=== PATIENT | male | born 1980 | race Caucasian/White ===

== ENCOUNTER 2019-06-02 16:59 | Emergency (ER) | payer BC, OTHER ==
[2019-06-02] MEDS ORDERED: SODIUM CHLORIDE 0.9% 1,000 ML IV STA (17:54)
[2019-06-02] MEDS ORDERED: LORazepam 2 MG/ML INJ IV STA (17:55)
--- NOTE | 2019-06-02 17:58 | ED ---
Dizziness HPI - General Chief Complaint: Dizziness Stated Complaint: CHEST TIGHTNESS,DIZZY Time Seen by Provider: 06/02/19 17:17 Source: patient, RN notes reviewed, old records reviewed Mode of arrival: ambulatory Limitations: no limitations - History of Present Illness Initial Comments: This is a 38-year-old male presents dizziness concern possible for having complaints of dizziness, he is concerned and anxious possible exposure having a virus. Lightheadedness and some facial chest pain denying any current shortness of breath or fevers. Patient has no recent travel history or known sick contacts no known exposures to [place]. Patient denying any other significant symptoms symptoms are episodic and currently is asymptomatic MD Complaint: dizziness -: days(s) Timing: gradual onset Description: lightheadedness, nausea History of Same: No History of Trauma: No Severity: mild Improves With: remaining still, rehydration Worsens With: movement Associated Symptoms: chest pain - Related Data Previous Rx's Medication Instructions Recorded Penicillin V Potassium [Pen Vee K] 500 mg PO QID #28 tab 04/08/15 Allergies Allergy/AdvReac Type Severity Reaction Status Date / Time No Known Allergies Allergy Verified 06/02/19 17:05 Review of Systems ROS Statement: Those systems with pertinent positive or pertinent negative responses have been documented in the HPI. ROS Other: All systems not noted in ROS Statement are negative. Past Medical History Past Medical History: No Reported History History of Any Multi-Drug Resistant Organisms: None Reported Past Surgical History: No Surgical Hx Reported Past Psychological History: No Psychological Hx Reported Smoking Status: Never smoker Past Alcohol Use History: None Reported Past Drug Use History: None Reported General Exam Limitations: no limitations General appearance: alert, in no apparent distress, anxious Head exam: Present: atraumatic, normocephalic, normal inspection Eye exam: Present: normal appearance, PERRL, EOMI. Absent: scleral icterus, conjunctival injection, periorbital swelling ENT exam: Present: normal exam, mucous membranes moist Neck exam: Present: normal inspection. Absent: tenderness, meningismus, lymphadenopathy Respiratory exam: Present: normal lung sounds bilaterally. Absent: respiratory distress, wheezes, rales, rhonchi, stridor Cardiovascular Exam: Present: regular rate, normal rhythm, normal heart sounds. Absent: systolic murmur, diastolic murmur, rubs, gallop, clicks GI/Abdominal exam: Present: soft, normal bowel sounds. Absent: distended, tenderness, guarding, rebound, rigid Extremities exam: Present: normal inspection, full ROM, normal capillary refill. Absent: tenderness, pedal edema, joint swelling, calf tenderness Back exam: Present: normal inspection Neurological exam: Present: alert, oriented X3, CN II-XII intact Psychiatric exam: Present: normal affect, normal mood Skin exam: Present: warm, dry, intact, normal color. Absent: rash Course Vital Signs 06/02/19 06/02/19 06/02/19 17:01 17:41 17:45 Temperature 98.2 F Pulse Rate 124 H 112 H 98 Respiratory 18 14 10 L Rate Blood Pressure 166/86 O2 Sat by Pulse 99 Oximetry 06/02/19 06/02/19 06/02/19 17:50 17:55 18:05 Temperature Pulse Rate 93 91 85 Respiratory 8 L 16 16 Rate Blood Pressure 141/96 124/81 O2 Sat by Pulse 97 95 95 Oximetry 06/02/19 06/02/19 06/02/19 18:10 18:15 18:18 Temperature Pulse Rate 87 Respiratory 16 Rate Blood Pressure 124/81 124/81 O2 Sat by Pulse 97 98 Oximetry 06/02/19 06/02/19 06/02/19 18:20 18:25 18:30 Temperature Pulse Rate 95 89 Respiratory 9 L 17 Rate Blood Pressure 124/81 124/81 124/81 O2 Sat by Pulse Oximetry 06/02/19 06/02/19 19:48 20:30 Temperature 98.3 F 97.3 F L Pulse Rate 79 87 Respiratory 18 15 Rate Blood Pressure 133/88 127/79 O2 Sat by Pulse 98 97 Oximetry - Reevaluation(s) Reevaluation #1: Medical record is reviewed Patient denying any chest pain or significant shortness of breath pulse ox normal here in the ER Patient informed her normal findings, objective plan of care, questions are answered EKG Findings - EKG Comments: EKG Findings:: EKG shows sinus of 99, OR 144, QRS 84, QTc 420 Medical Decision Making - Medical Decision Making 38-year-old male DF for evaluation patient has a for evaluation of dizziness, patient informed of possibility of early viral illness versus possible COVID, patient will return to ER if symptoms worsen - Lab Data Result diagrams: 06/02/19 17:49 06/02/19 17:49 Lab Results 06/02/19 06/02/19 06/02/19 Range/Units 17:49 17:49 17:49 WBC 14.2 H (3.8-10.6) k/uL RBC 5.30 (4.30-5.90) m/uL Hgb 16.9 (13.0-17.5) gm/dL Hct 49.7 (39.0-53.0) % MCV 93.8 (80.0-100.0) fL MCH 31.9 (25.0-35.0) pg MCHC 34.1 (31.0-37.0) g/dL RDW 12.5 (11.5-15.5) % Plt Count 267 (150-450) k/uL Neutrophils % 82 % Lymphocytes % 12 % Monocytes % 4 % Eosinophils % 1 % Basophils % 1 % Neutrophils # 11.7 H (1.3-7.7) k/uL Lymphocytes # 1.7 (1.0-4.8) k/uL Monocytes # 0.5 (0-1.0) k/uL Eosinophils # 0.1 (0-0.7) k/uL Basophils # 0.1 (0-0.2) k/uL D-Dimer <0.17 (<0.60) mg/L FEU Sodium 139 (137-145) mmol/L Potassium 4.2 (3.5-5.1) mmol/L Chloride 104 (98-107) mmol/L Carbon Dioxide 25 (22-30) mmol/L Anion Gap 10 mmol/L BUN 11 (9-20) mg/dL Creatinine 0.87 (0.66-1.25) mg/dL Est GFR (CKD-EPI)AfAm >90 (>60 ml/min/1.73 sqM) Est GFR (CKD-EPI)NonAf >90 (>60 ml/min/1.73 sqM) Glucose 103 H (74-99) mg/dL Calcium 10.1 (8.4-10.2) mg/dL Phosphorus 3.2 (2.5-4.5) mg/dL Magnesium 1.9 (1.6-2.3) mg/dL Ferritin 170.6 (22.0-322.0) ng/mL Total Bilirubin 0.5 (0.2-1.3) mg/dL AST 26 (17-59) U/L ALT 26 (4-49) U/L Alkaline Phosphatase 86 (38-126) U/L Creatine Kinase 102 (55-170) U/L CK-MB (CK-2) (0.0-2.4) ng/mL Troponin I (0.000-0.034) ng/mL NT-Pro-B Natriuret Pep pg/mL Total Protein 8.2 (6.3-8.2) g/dL Albumin 5.0 (3.5-5.0) g/dL 06/02/19 06/02/19 Range/Units 17:49 17:49 WBC (3.8-10.6) k/uL RBC (4.30-5.90) m/uL Hgb (13.0-17.5) gm/dL Hct (39.0-53.0) % MCV (80.0-100.0) fL MCH (25.0-35.0) pg MCHC (31.0-37.0) g/dL RDW (11.5-15.5) % Plt Count (150-450) k/uL Neutrophils % % Lymphocytes % % Monocytes % % Eosinophils % % Basophils % % Neutrophils # (1.3-7.7) k/uL Lymphocytes # (1.0-4.8) k/uL Monocytes # (0-1.0) k/uL Eosinophils # (0-0.7) k/uL Basophils # (0-0.2) k/uL D-Dimer (<0.60) mg/L FEU Sodium (137-145) mmol/L Potassium (3.5-5.1) mmol/L Chloride (98-107) mmol/L Carbon Dioxide (22-30) mmol/L Anion Gap mmol/L BUN (9-20) mg/dL Creatinine (0.66-1.25) mg/dL Est GFR (CKD-EPI)AfAm (>60 ml/min/1.73 sqM) Est GFR (CKD-EPI)NonAf (>60 ml/min/1.73 sqM) Glucose (74-99) mg/dL Calcium (8.4-10.2) mg/dL Phosphorus (2.5-4.5) mg/dL Magnesium (1.6-2.3) mg/dL Ferritin (22.0-322.0) ng/mL Total Bilirubin (0.2-1.3) mg/dL AST (17-59) U/L ALT (4-49) U/L Alkaline Phosphatase (38-126) U/L Creatine Kinase (55-170) U/L CK-MB (CK-2) 1.2 (0.0-2.4) ng/mL Troponin I <0.012 (0.000-0.034) ng/mL NT-Pro-B Natriuret Pep 18 pg/mL Total Protein (6.3-8.2) g/dL Albumin (3.5-5.0) g/dL - Radiology Data Radiology results: report reviewed (Chest x-ray is negative for acute disease), image reviewed Disposition Clinical Impression: Dizziness Disposition: HOME SELF-CARE Condition: Good Instructions (If sedation given, give patient instructions): Dizziness (ED) Is patient prescribed a controlled substance at d/c from ED?: No Referrals: None,Stated [Primary Care Provider] - 1-2 days
[2019-06-02 18:12] LABS: Basophils # (A) 0.1 k/uL (0-0.2); Basophils % (A) 1 %; Eosinophils # (A) 0.1 k/uL (0-0.7); Eosinophils % (A) 1 %; HCT 49.7 % (39.0-53.0); HGB 16.9 gm/dL (13.0-17.5); Lymphocytes # (A) 1.7 k/uL (1.0-4.8); Lymphocytes % (A) 12 %; MCH 31.9 pg (25.0-35.0); MCHC 34.1 g/dL (31.0-37.0); MCV 93.8 fL (80.0-100.0); Mean Platelet Volume 8.2; Monocytes # (A) 0.5 k/uL (0-1.0); Monocytes % (A) 4 %; Neutrophils # (A) 11.7 k/uL (1.3-7.7); Neutrophils % (A) 82 %; Platelet Count 267 k/uL (150-450); RDW 12.5 % (11.5-15.5); WBC 14.2 k/uL (3.8-10.6)
[2019-06-02 18:20] LABS: ALT 26 U/L (4-49); AST 26 U/L (17-59); African American GFR (CKD) >90 (>60 ml/min/1.73 sqM); Alkaline Phosphatase 86 U/L (38-126); Anion Gap 10 mmol/L; Blood Urea Nitrogen 11 mg/dL (9-20); Calcium 10.1 mg/dL (8.4-10.2); Carbon Dioxide 25 mmol/L (22-30); Chloride 104 mmol/L (98-107); Creatine Kinase 102 U/L (55-170); Glucose 103 mg/dL (74-99); Magnesium 1.9 mg/dL (1.6-2.3); Non-African American GFR(CKD) >90 (>60 ml/min/1.73 sqM); Phosphorus 3.2 mg/dL (2.5-4.5); Potassium 4.2 mmol/L (3.5-5.1); Sodium 139 mmol/L (137-145); Total Bilirubin 0.5 mg/dL (0.2-1.3); Total Protein 8.2 g/dL (6.3-8.2)
[2019-06-02 18:32] LABS: Creatine Kinase MB 1.2 ng/mL (0.0-2.4); Troponin I <0.012 ng/mL (0.000-0.034)
--- NOTE | 2019-06-02 18:32 | XR ---
EXAMINATION TYPE: XR chest 2V DATE OF EXAM: 06/02/2019 COMPARISON: NONE HISTORY: Chest pain TECHNIQUE: FINDINGS: Heart and mediastinum are normal. Lungs are clear. Diaphragm is normal. There are chest unique ds. Bony thorax is intact. IMPRESSION: Normal chest.
[2019-06-02 20:44] VITALS: BP 127/79; PULSE 87; RESP 15; TEMP 97.3
[2019-06-03 10:19] LABS: Ferritin 170.6 ng/mL (22.0-322.0)
== END 2019-06-02 20:30 | disposition home or self-care (01) ==
LOC: EC 16:59
DX: R42 Dizziness and giddiness (principal); R07.9 Chest pain, unspecified; R11.0 Nausea; R51 Headache; Z20.828 Contact with and (suspected) exposure to other viral communicable diseases
CPT/HCPCS: 36415; 93005; 85379; 83880; 80053; 82728; 82550; 82553; 83735; 84100; 84484; 85025; 71046; 99284; 96374; 96361; J2060

== ENCOUNTER 2019-11-16 09:31 | Emergency (ER) | payer OTHER ==
--- NOTE | 2019-11-16 09:59 | ED ---
Upper Extremity HPI - General Chief Complaint: Extremity Injury, Upper Stated Complaint: poss infection/arm Time Seen by Provider: 11/16/19 09:41 Source: patient, RN notes reviewed Mode of arrival: ambulatory Limitations: no limitations - History of Present Illness Initial Comments: 39-year-old male presents emergency from chief complaint of right arm infection. Patient states 2 weeks ago he has small injury to his wrist. Patient states he was not feeling. Patient states recently started having some drainage noticed some redness streaking up his arm today. Denies fever, chills. He has no pain in his wrist, right elbow right shoulder region. Patient states he has no other injuries NO KNOWN DRUG ALLERGIES. - Related Data Previous Rx's Medication Instructions Recorded Penicillin V Potassium [Pen Vee K] 500 mg PO QID #28 tab 04/08/15 Cephalexin [Keflex] 500 mg PO Q6HR #40 cap 11/16/19 Sulfamethox-Tmp 800-160Mg [Bactrim 1 each PO Q12HR #20 tab 11/16/19 Ds] Allergies Allergy/AdvReac Type Severity Reaction Status Date / Time No Known Allergies Allergy Verified 11/16/19 09:35 Review of Systems ROS Statement: Those systems with pertinent positive or pertinent negative responses have been documented in the HPI. ROS Other: All systems not noted in ROS Statement are negative. Past Medical History Past Medical History: No Reported History History of Any Multi-Drug Resistant Organisms: None Reported Past Surgical History: No Surgical Hx Reported Additional Past Surgical History / Comment(s): eye surgery Past Psychological History: No Psychological Hx Reported Smoking Status: Current every day smoker Past Alcohol Use History: None Reported Past Drug Use History: None Reported General Exam Limitations: no limitations General appearance: alert, in no apparent distress Head exam: Present: atraumatic, normocephalic, normal inspection Respiratory exam: Present: normal lung sounds bilaterally. Absent: respiratory distress, wheezes, rales, rhonchi, stridor Cardiovascular Exam: Present: regular rate, normal rhythm, normal heart sounds. Absent: systolic murmur, diastolic murmur, rubs, gallop, clicks Extremities exam: Present: other (Right wrist volar surface there is small erythematous open wound, there is mild erythematous area streaking to the mid forearm there is no pain to the right axilla, right elbow he has full range of motion there is no epitrochlear nodes or lymph nodes noted in the right axilla) Neurological exam: Present: alert, oriented X3, reflexes normal. Absent: motor sensory deficit Skin exam: Present: warm, dry Course Vital Signs 11/16/19 09:35 Temperature 97.5 F L Pulse Rate 100 Respiratory 16 Rate Blood Pressure 169/100 O2 Sat by Pulse 100 Oximetry Medical Decision Making - Medical Decision Making Patient presented for right wrist infection. He has small open wound with signs of cellulitis and mild lymphangitis. Vitals are stable other than mild hypertension and which she'll follow up for. Patient will be started on antibiotics and return parameters were discussed. Disposition Clinical Impression: Cellulitis of right wrist, Acute lymphangitis of right upper extremity Disposition: HOME SELF-CARE Condition: Stable Instructions (If sedation given, give patient instructions): Lymphangitis (ED) Additional Instructions: Please return to the Emergency Department if symptoms worsen or any other concerns. Prescriptions: Sulfamethox-Tmp 800-160Mg [Bactrim Ds] 1 each PO Q12HR #20 tab Cephalexin [Keflex] 500 mg PO Q6HR #40 cap Is patient prescribed a controlled substance at d/c from ED?: No Referrals: None,Stated [Primary Care Provider] - 1-2 days Time of Disposition: 09:58
[2019-11-16 10:43] VITALS: BP 152/92; PULSE 98; RESP 18; TEMP 98.2
== END 2019-11-16 10:44 | disposition home or self-care (01) ==
LOC: EC 09:31
DX: L03.113 Cellulitis of right upper limb (principal); F17.200 Nicotine dependence, unspecified, uncomplicated
CPT/HCPCS: 99283

== ENCOUNTER → 2024-02-29 | Outpatient (CLI) | payer BC ==
--- NOTE | 2024-02-29 09:36 | US ---
EXAMINATION TYPE: US liver DATE OF EXAM: 02/29/2024 COMPARISON: NONE CLINICAL INDICATION: Male, 43 years old with history of R74.8 ABNORMAL LEVELS OF OTHER SERUM ENZYMES; abnormal liver enzymes TECHNIQUE: Grayscale and color Doppler imaging of the right upper quadrant was performed. FINDINGS: EXAM MEASUREMENTS: Liver Length: 13.8 cm Gallbladder Wall: 0.25 cm CBD: 0.38 cm Right Kidney: 10.5 x 5.7 x 5.2 cm SEWING TRIMMER NOTES: Pancreas: parts seen appear wnl Liver: heterogeneous and increased attenuation Gallbladder: wnl Evidence for sonographic Swanson's sign: No CBD: wnl Right Kidney: wnl The visualized portions of the pancreas unremarkable. Liver demonstrates diffuse heterogenous increas ed echogenicity. This appearance limits evaluation for small intrahepatic masses. No gross evidence o f mass. No cholelithiasis, wall thickening, or surrounding fluid. Negative sonographic Swanson's sign. Common bile duct is within normal limits. Right kidney demonstrates no hydronephrosis, shadowing micaela culi, or solid mass. IMPRESSION: 1. No acute process. 2. Hepatic steatosis. [facility], , 02/29/2024 9:33 AM
== END | disposition home or self-care (01) ==
LOC: RADUSWWP 08:40
PROVIDERS: ATTEND Internal Medicine
DX: K76.0 Fatty (change of) liver, not elsewhere classified (principal); R74.8 Abnormal levels of other serum enzymes
CPT/HCPCS: 76705

== ENCOUNTER → 2024-04-06 | Outpatient (CLI) | payer BC ==
--- NOTE | 2024-04-06 09:33 | MR ---
EXAMINATION TYPE: MR lumbar spine wo/w con DATE OF EXAM: 04/06/2024 7:53 AM COMPARISON: None. CLINICAL INDICATION: Male, 43 years old with history of M54.17 L2,3,4 RADICULOPATHY. Low back pain e xtending into the right buttock/leg. TECHNIQUE: Multiplanar, multisequence images of lumbar spine are obtained before and after administra tion of 9 mL IV Gadavist. FINDINGS: Vertebral body heights are preserved and alignment is maintained. Mild degenerative disc disease throughout with disc desiccation and disc bulging scattered throughout . There is a posterior annular fissure at L4-L5. Conus medullaris is normal. Some patchy red marrow is present. No suspicious bone marrow replacement. No prevertebral or paravertebral soft tissue abnormality. Posterior disc bulge L1-L2 impresses on the ventral thecal sac minimally narrowing the spinal canal. No significant spinal canal stenosis is seen. On the right, bulging disc contributes to a moderate right neuroforaminal stenosis at L3-L4 and mild at L5-S1. On the left, changes result in a mild to moderate neural foraminal stenosis at L3-L4 and mild at L4-L 5. In addition, disc bulge at L4-L5 may abut the traversing left L5 nerve root, refer to sagittal nicko ge 7 The L4-L5 posterior fissure shows postcontrast enhancement. Otherwise, no abnormal enhancement within the spinal canal. IMPRESSION: 1. Mild multilevel degenerative disc disease with a large posterior annular fissure at L4-L5. 2. No large focal disc herniation or significant spinal canal stenosis. 3. Changes result in a moderate right neuroforaminal stenosis at L3-L4. Mild to moderate on the left at L3-L4. 4. In addition, disc bulge at L4-L5 may abut the traversing left L5 nerve root. [facility], , 04/06/2024 9:30 AM
== END | disposition home or self-care (01) ==
LOC: RADMRIMAIN 06:49
PROVIDERS: ATTEND Internal Medicine
DX: M48.061 Spinal stenosis, lumbar region without neurogenic claudication (principal); M54.17 Radiculopathy, lumbosacral region
CPT/HCPCS: 72158; A9585